=== PATIENT | male | born 1980 | race Two or more races ===

== ENCOUNTER 2020-06-30 15:32 | Emergency (ER) | payer SELFPAY ==
[~2020-06-30] VITALS: Ht 180.3 cm; Wt 90.7 kg
[2020-06-30 15:38] VITALS: BP 158/97
== END 2020-06-30 18:07 | disposition home or self-care (01) ==
LOC: ER 15:32
DX: U07.1 COVID-19 (principal); J98.9 Respiratory disorder, unspecified
CPT/HCPCS: 36415; 71046; 87426